=== PATIENT | female | born 1985 | race Caucasian/White ===

== ENCOUNTER 2017-01-02 01:19 | Emergency (ER) | payer OTHER ==
[2017-01-02 02:05] LABS: HEMOGLOBIN 11.8 gm/dl (12.3-15.3); RED BLOOD COUNT 4.28 M/UL (4.00-5.10); WHITE BLOOD COUNT 13.6 K/UL (4.5-11.0)
[2017-01-02 02:13] LABS: BUN/CREATININE RATIO 38 (0-10)
== END 2017-01-02 04:10 | disposition home or self-care (01) ==
LOC: ER1 01:19
PROVIDERS: Specialist/Technologist Athletic Trainer
DX: S39.012A Strain of muscle, fascia and tendon of lower back, initial encounter (principal); E87.6 Hypokalemia; V89.2XXA Person injured in unspecified motor-vehicle accident, traffic, initial encounter; Y92.410 Unspecified street and highway as the place of occurrence of the external cause; F32.9 Major depressive disorder, single episode, unspecified; Z79.899 Other long term (current) drug therapy; F17.200 Nicotine dependence, unspecified, uncomplicated
CPT/HCPCS: 36415; 70450; 72125; 72128; 72131; 80053; 82550; 84703; 85025; 99284